=== PATIENT | male | born 1995 | race Caucasian/White ===

== ENCOUNTER 2020-10-04 10:45 | Emergency (ER) | payer OTHER ==
[~2020-10-04 10:45] MED LIST: AUGMENTIN 875-1 EACH PO; BACLOFEN 10MG T10 MG PO; IBUPROFEN800 MG PO; NAPROXEN500 MG PO; TESSALON PERLE100 MG PO; ZPAK PO
[2020-10-04 12:08] LABS: CORONAVIRUS 2019 SARS-COV-2 NEGATIVE (NEGATIVE); INFLUENZA A NAA NEGATIVE (NEGATIVE)
== END 2020-10-04 13:01 | disposition home or self-care (01) ==
LOC: FER 10:45
PROVIDERS: Emergency Medicine
DX: J02.9 Acute pharyngitis, unspecified (principal); R07.1 Chest pain on breathing; R06.02 Shortness of breath; K08.89 Other specified disorders of teeth and supporting structures; Z87.891 Personal history of nicotine dependence; Z20.822 Contact with and (suspected) exposure to COVID-19
CPT/HCPCS: 87880; 99284; U0002